=== PATIENT | female | born 1985 | race African-American/Black ===

== ENCOUNTER 2019-12-22 16:22 | Emergency (ER) | payer MEDICAID ==
[~2019-12-22] VITALS: Ht 165.1 cm; Wt 65.0 kg
[2019-12-22] MEDS ORDERED: OLANZAPINE 5MG TABLET ODT PO ONE (18:00)
[2019-12-22 18:17] LABS: CHLORIDE 106 mEq/L (98-107)
[2019-12-22 18:21] LABS: BASOPHILS % 0.4 % (0.0-2.0); EOSINOPHILS % 0.1 % (0.0-5.0); ETHANOL BLOOD < 10 mg/dL; HEMATOCRIT. 34.6 % (36.0-48.0); HEMOGLOBIN. 11.9 g/dL (12.0-16.0); LYMPHOCYTES % 25.6 % (20.0-50.0); MEAN CORPUSCULAR HEMOGLOBIN 30.4 pg (28.0-32.0); MONOCYTES % 7.8 % (2.0-8.0); NEUTROPHILS % 66.1 % (40.0-76.0); PLATELET 600 x1000/uL (130-400); RED BLOOD CELL COUNT 3.92 mill/uL (4.2-5.4); RED CELL DISTRIBUTION WIDTH 15.5 % (11.6-14.6)
[2019-12-22] MEDS ORDERED: SODIUM CHLORIDE 0.9% 1,000 ML IV ONE (18:30)
[2019-12-22 18:34] LABS: HCG SCREEN NEGATIVE
[2019-12-23] MEDS ORDERED: HALOPERIDOL LACTATE 5MG/ML VIAL IM ONE (00:15)
[2019-12-23 03:34] VITALS: BP 133/76
[2019-12-23] MEDS ORDERED: ZIPRASIDONE MESYLATE 20MG/VIAL IM SCH (04:00)
[2019-12-23] MEDS ORDERED: DIPHENHYDRAMINE 50MG/ML VIAL IM SCH (04:00)
== END 2019-12-23 10:31 | disposition home or self-care (01) ==
LOC: ER 16:22
DX: F23 Brief psychotic disorder (principal); F15.10 Other stimulant abuse, uncomplicated; R45.1 Restlessness and agitation; F17.210 Nicotine dependence, cigarettes, uncomplicated; Z71.6 Tobacco abuse counseling
CPT/HCPCS: 36415; 80053; 80307; 80320; 80329; 81025; 84703; 85025; 96372; 99285; 99406; J1200; J1630; J3486; J7030; G0480

== ENCOUNTER 2020-03-07 03:00 | Emergency (ER) | payer SELFPAY ==
[~2020-03-07] VITALS: Ht 170.2 cm; Wt 82.0 kg
[2020-03-07 03:06] VITALS: BP 130/86
== END 2020-03-07 03:20 | disposition left against medical advice (07) ==
LOC: ER 03:00
DX: Z53.21 Procedure and treatment not carried out due to patient leaving prior to being seen by health care provider (principal); R07.9 Chest pain, unspecified
CPT/HCPCS: 93005